=== PATIENT | female | born 1950 | race Caucasian/White ===

== ENCOUNTER 2023-02-24 12:18 | Emergency (ER) | payer MEDICARE ==
[~2023-02-24 12:18] MED LIST: Iopamidol 300 61% 100 ML VIAL FS ONE
[2023-02-24 12:58] LABS: #Eosinphils 0.1 10x3/uL (0.0-0.5); #Monocytes 0.7 10x3/uL (0.0-1.1); %Basophils 0.4 % (0.0-2.0); %Eosinophils 1.7 % (0.0-6.0); %Lymphocytes 17.8 % (18.0-47.0); %Monocytes 14.4 % (0.0-10.0); %Neutrophils 65.3 % (40.0-75.0); Hemoglobin 15.5 g/dL (12.0-15.5); Mean Corpuscular HGB CONC 35.4 g/dL (32.0-36.0); Mean Corpuscular Hemoglobin 34.2 pg (27.0-33.0); Mean Corpuscular Volume 96.7 fl (81.6-98.3); Mean Platelet Volume 9.9 fl (7.4-10.4); Platelet Count 196 10x3/uL (150-450); RBC Distribution Width 11.8 % (11.5-14.5); Red Blood Cell (RBC) Count 4.53 10x6/uL (3.90-5.03); White Blood Cell (WBC) Count 4.7 10x3/uL (3.5-10.5)
[2023-02-24 13:14] LABS: ALT (SGPT) 29 U/L (8-55); AST (SGOT) 43 U/L (5-34); Albumin 4.3 g/dL (3.4-4.8); Alkaline Phosphatase 66 U/L (40-110); Anion Gap 21 mmol/L (10-20); BUN (Urea Nitrogen) 7 mg/dL (9.8-20.1); Bilirubin, Total 1.1 mg/dL (0.2-1.2); Calc. Creatinine Clearance 0 mL/min (70-130); Calcium 9.1 mg/dL (7.8-10.44); Carbon Dioxide 22 mmol/L (23-31); Chloride 90 mmol/L (98-107); Estimated GFR 95; Globulin 3.8 g/dL (2.4-3.5); Glucose 93 mg/dL (80-115); Potassium 3.8 mmol/L (3.5-5.1); Protein, Total 8.1 g/dL (5.8-8.1); Sodium 129 mmol/L (136-145)
[2023-02-24] MEDS ORDERED: methylPREDNISolone Sod Succ 40 MG VIAL ONE (14:04)
[2023-02-24] MEDS ORDERED: Famotidine/PF 20 mg/2ml Vial ONE (14:04)
[2023-02-24] MEDS ORDERED: diphenhydrAMINE 50 MG/ML VIAL ONE (14:04)
== END 2023-02-24 16:10 | disposition home or self-care (01) ==
LOC: CSHERS 12:18
DX: M54.2 Cervicalgia (principal); J44.9 Chronic obstructive pulmonary disease, unspecified; E87.1 Hypo-osmolality and hyponatremia; F17.200 Nicotine dependence, unspecified, uncomplicated
CPT/HCPCS: 36415; 70450; 70491; 80053; 85025; 93005; 96374; 96375; J1200; J2920; Q9967; S0028